=== PATIENT | male | born 2000 | race Caucasian/White ===

== ENCOUNTER 2025-08-28 18:27 | Emergency (ER) | payer BC, MEDICAID ==
[~2025-08-28] VITALS: Ht 175.3 cm; Wt 73.0 kg
[2025-08-28 18:28] VITALS: O2SAT 99
[2025-08-28] MEDS: SODIUM CHLORIDE 0.9% 1,000 ML IV ONE (19:11)
[2025-08-28] MEDS: LEVETIRACETAM 1000MG PREMIX 100 ML IV ONE (19:11)
[2025-08-28 20:01] LABS: BASOPHILS % 1.0 % (0.0-2.0); EOSINOPHILS % 0.8 % (0.0-5.0); HEMATOCRIT. 38.1 % (42.0-52.0); HEMOGLOBIN. 12.7 g/dL (14.0-18.0); LYMPHOCYTES % 21.7 % (20.0-50.0); MEAN PLATELET VOLUME 9.1 fl (7.4-10.4); MONOCYTES % 4.1 % (2.0-8.0); NEUTROPHILS % 72.4 % (40.0-76.0); PLATELET 282 x1000/uL (130-400); RED BLOOD CELL COUNT 4.38 mill/uL (4.7-6.1); RED CELL DISTRIBUTION WIDTH 13.7 % (11.6-14.6)
[2025-08-28 20:08] LABS: CLARITY URINE CLEAR (CLEAR); COLOR URINE YELLOW (YELLOW); GLUCOSE URINE NEGATIVE (NEGATIVE); KETONES URINE TRACE (NEGATIVE); LEUKOCYTE ESTERASE URINE NEGATIVE (NEGATIVE); NITRITE URINE NEGATIVE (NEGATIVE); OCCULT BLOOD URINE NEGATIVE (NEGATIVE); PH URINE 8.0 (4.5-8.0); PROTEIN URINE NEGATIVE (NEGATIVE); SPECIFIC GRAVITY URINE 1.015 (1.005-1.030); UROBILINOGEN URINE 1.0 E.U./dL (0.2-1.0)
[2025-08-28 20:12] LABS: *AMPHETAMINES SCREEN URINE NEGATIVE (NEGATIVE); *BARBITURATES SCREEN URINE NEGATIVE (NEGATIVE); *BENZODIAZEPINES SCREEN URINE NEGATIVE (NEGATIVE); *COCAINE SCREEN URINE NEGATIVE (NEGATIVE); CANNABINOID URINE SCREEN NEGATIVE (NEGATIVE); ECSTASY MDMA SCREEN URINE NEGATIVE (NEGATIVE); METHADONE URINE SCREEN NEGATIVE (NEGATIVE); OPIATES URINE SCREEN NEGATIVE (NEGATIVE); PHENCYCLIDINE URINE SCREEN NEGATIVE (NEGATIVE)
[2025-08-28 20:15] LABS: CREATININE 0.7 mg/dL (0.6-1.3); UREA NITROGEN BLOOD 6 mg/dL (9-23)
[2025-08-28 20:16] LABS: ETHANOL BLOOD < 10 mg/dL (<10)
[2025-08-28 21:44] VITALS: BP 109/55; PULSE 64; RESP 16; TEMP 36.7; O2SAT 100
== END 2025-08-28 22:27 | disposition home or self-care (01) ==
LOC: ER 18:27 → CMPBEDREQ 08-29 07:55
DX: R56.9 Unspecified convulsions (principal)
CPT/HCPCS: 80305; 80048; 81003; 80320; 85025; 36415; 93005; 96365; 99284; J1953; J7030; Z7610; A4606; G0480

== ENCOUNTER 2025-09-02 10:09 | Emergency (ER) | payer BC, MEDICAID ==
[~2025-09-02] VITALS: Ht 172.7 cm; Wt 79.0 kg
[2025-09-02 10:10] VITALS: O2SAT 98
[2025-09-02] MEDS: LEVETIRACETAM 1000MG PREMIX 100 ML IV ONE (10:43)
[2025-09-02 10:56] LABS: BASOPHILS % 0.6 % (0.0-2.0); EOSINOPHILS % 0.4 % (0.0-5.0); HEMATOCRIT. 39.5 % (42.0-52.0); HEMOGLOBIN. 13.1 g/dL (14.0-18.0); LYMPHOCYTES % 35.4 % (20.0-50.0); MEAN PLATELET VOLUME 8.7 fl (7.4-10.4); MONOCYTES % 8.5 % (2.0-8.0); NEUTROPHILS % 55.1 % (40.0-76.0); PLATELET 242 x1000/uL (130-400); RED BLOOD CELL COUNT 4.50 mill/uL (4.7-6.1); RED CELL DISTRIBUTION WIDTH 13.9 % (11.6-14.6)
[2025-09-02 11:18] LABS: CREATININE 0.9 mg/dL (0.6-1.3); UREA NITROGEN BLOOD 9 mg/dL (9-23)
[2025-09-02 11:19] LABS: ETHANOL BLOOD < 10 mg/dL (<10)
[2025-09-02] MEDS ORDERED: NALO4SPR BOTHNSTRLS (11:42)
[2025-09-02 13:50] VITALS: BP 110/56; PULSE 55; RESP 14; TEMP 36.9; O2SAT 98
== END 2025-09-02 13:55 | disposition home or self-care (01) ==
LOC: ER 10:17
DX: R56.9 Unspecified convulsions (principal); F11.10 Opioid abuse, uncomplicated; F17.200 Nicotine dependence, unspecified, uncomplicated
CPT/HCPCS: 80048; 80320; 85025; 36415; 70450; 93005; 96365; 96366; 99285; J1953; G0480

== ENCOUNTER 2025-09-29 22:25 | Emergency (ER) | payer BC ==
[~2025-09-29] VITALS: Ht 175.3 cm; Wt 80.0 kg
[~2025-09-29 22:25] MED LIST: NALO4SPR BOTHNSTRLS
[2025-09-29 22:28] VITALS: TEMP 97.6; O2SAT 98
[2025-09-29] MEDS: LEVETIRACETAM 1000MG PREMIX 100 ML IV ONE (22:57)
[2025-09-29] MEDS ORDERED: LEVE1000 MT (23:37)
[2025-09-30 01:47] VITALS: BP 129/86; PULSE 89; RESP 23; O2SAT 100
== END 2025-09-30 01:48 | disposition home or self-care (01) ==
LOC: ER 22:25
DX: R56.9 Unspecified convulsions (principal); F19.90 Other psychoactive substance use, unspecified, uncomplicated; E11.9 Type 2 diabetes mellitus without complications
CPT/HCPCS: 99284; 96365; J1953